=== PATIENT | male | born 1960 | race Caucasian/White ===

== ENCOUNTER → 2018-02-09 12:20 | Day surgery (SDC) | payer OTHER ==
[~2018-02-09 12:20] MED LIST: Bacitracin OINTMENT* 0.5% 0.5 oz TUBE ONE; Buffered Lidocaine 0.9% SYRIN* 5 ML/SYR SYRINGE INTRADERM ONE; Buffered Lidocaine 0.9% SYRIN* 5 ML/SYR SYRINGE ONE; Dexamethasone IV* 4 MG/ML 1 ML (4 MG) ONE; Famotidine TAB* 20 MG ONE; Famotidine TAB* 20 MG PO ONE; Labetalol IV* 5 MG/ML 20 ML VIAL IV PUSH PRN; Labetalol IV* 5 MG/ML 20 ML VIAL ONE; Lidocain 1% EPI 1:100,000 * 30 ML MDV ONE; Lidocaine 2% PF * 5 ML VIAL ONE; Lidocaine 4% TOPICAL* 50 ML TOP.SOLN ONE; Metoclopramide TAB* 10 MG ONE; Metoclopramide TAB* 10 MG PO ONE; Midazolam* 1 MG/ML 5 ML VIAL (5 MG) ONE; Naloxone* 0.4 MG/ML 1 ML VIAL IV PRN; Ondansetron INJ* 2 MG/ML VIAL IV PRN; Ondansetron INJ* 2 MG/ML VIAL ONE; Oxymetazoline 0.05% NASAL SPR* 15 ML BTL ONE; Propofol* 10 MG/ML 20 ML BTL IV PUSH ONE; fentaNYL* 50 MCG/ML 2 ML VIAL (100 MCG VIAL) IV PRN; fentaNYL* 50 MCG/ML 2 ML VIAL (100 MCG VIAL) ONE; hydrALAZINE IV* 20 MG/ML VIAL IV SLOW PU ONE; hydrALAZINE IV* 20 MG/ML VIAL IV SLOW PU SCH; hydrALAZINE IV* 20 MG/ML VIAL ONE; oxyCODONE/Acetamin 5/325 MG* TAB PO PRN
[2018-02-09 20:03] VITALS: BP 139/87
--- NOTE | 2018-02-09 21:35 | OP ---
OPERATIVE REPORT: DATE OF OPERATION: 02/09/18 - [facility] DATE OF : 58 SURGEON: Brendon Mclaughlin MD FLOW COORDINATOR: None. ANESTHESIOLOGIST: Rodriguez Villatoro MD ANESTHESIA: General. PRE-OP DIAGNOSIS: Deviated nasal septum. POST-OP DIAGNOSIS: Deviated nasal septum. OPERATIVE PROCEDURE: Septoplasty. ESTIMATED BLOOD LOSS: Negligible. FINDINGS: Severe right septal deviation with complete occlusion of the right nasal cavity. SPECIMENS: None. Septal cartilage and bone was discarded. DESCRIPTION OF PROCEDURE: On 02/09/18, the patient was brought to the operating room. General anesthesia was induced, and an LMA was placed. A time- out was performed. The patient was draped and the procedure was initiated. A 1 % lidocaine with 1:100,000 epinephrine was then infiltrated into the columella and both sides of the nasal septum, approximately, 10 cc was used. Pledgets soaked with Afrin and 4% lidocaine were packed into both sides of the nose. Once adequate time had been allotted for vasoconstriction, the procedure was begun. A 15-blade was used to make a left hemitransfixion incision. A mucoperichondrial flap was elevated. The quadrangular cartilage was then incised vertically proximally 8 mm posterior to the anterior edge. This facilitate exposure to the submucoperichondrial space on the right and a mucoperichondrial flap was elevated on the right. The deviated portions of the quadrangular cartilage were then removed with Danish swivel knife as well as a double action through cutting rongeur. There was a perforation of the right mucoperichondrial flap during elevation of the flap, but no corresponding perforation on the contralateral side. A single large piece of septal cartilage was selected, morselized, placed back between the mucoperichondrial flaps, sutured in position with chromic. The hemitransfixion incision was then closed with chromic. A magnetic splint was then placed in each side of the nasal cavity and secured with 4-0 Prolene. A drip pad was applied and the patient was then allowed to arise from anesthesia and delivered to the PACU in stable condition. [id number]/[facility] #: [id number] [facility]STCHESTERJamila
== END | disposition home or self-care (01) ==
LOC: OR 12:20
PROVIDERS: ATTEND Otolaryngology
DX: J34.2 Deviated nasal septum (principal); J34.89 Other specified disorders of nose and nasal sinuses; Z87.891 Personal history of nicotine dependence; J44.9 Chronic obstructive pulmonary disease, unspecified
CPT/HCPCS: A9270-GY; J0360; J1100; J2250; J2405; J2704; J3010